=== PATIENT | male | born 1995 | race Two or more races ===

== ENCOUNTER 2020-02-04 09:18 | Emergency (ER) | payer MEDICARE, MEDICAID ==
[~2020-02-04] VITALS: Ht 160 cm; Wt 59.9 kg
[2020-02-04 09:26] VITALS: BP 83/53
[2020-02-04] MEDS ORDERED: DexAMETHasone SOD PHOS 10MG/1ML VIAL INJ IM ONE (10:45)
[2020-02-04] MEDS ORDERED: DOXYCYCLINE 100 MG TAB/CAP PO ONE (10:45)
== END 2020-02-04 11:04 | disposition home or self-care (01) ==
LOC: ER 09:18
DX: J18.9 Pneumonia, unspecified organism (principal); I95.9 Hypotension, unspecified; I10 Essential (primary) hypertension; Z88.8 Allergy status to other drugs, medicaments and biological substances
CPT/HCPCS: 71045; 96372; 99283; J1100

== ENCOUNTER 2024-08-18 19:01 | Emergency (ER) | payer MEDICARE, MEDICAID ==
[~2024-08-18] VITALS: Ht 160 cm; Wt 62.4 kg
[2024-08-18 20:15] VITALS: BP 120/67; PULSE 86; RESP 16; TEMP 98.3; O2SAT 100
[2024-08-18 20:47] LABS: Basophils # (auto) 0.1 10 ^3/uL (0-0.2); Basophils % (auto) 0.9 % (0.0-2.0); Eosinophils # (auto) 0.1 10 ^3/uL (0-0.8); Hematocrit 47.5 % (41.0-53.0); Hemoglobin 16.4 g/dL (13.5-17.5); Lymphocytes # (auto) 2.1 10 ^3/uL (0.4-5.4); Mean Corpuscular Hemoglobin 30.3 pg (28.0-32.0); Mean Corpuscular Hgb Conc. 34.5 g/dL (32.0-36.0); Monocytes # (auto) 0.6 10 ^3/uL (0-1.3); Neutrophils # (auto) 3.9 10 ^3/uL (1.6-8.6); Neutrophils % (auto) 57.1 % (37.0-80.0); Nucleated Red Blood Cells % 0.1 %; Platelet Count (auto) 247 10^3/uL (140-450); Red Cell Distribution Width 13.8 % (11.8-14.3); White Blood Cell 6.9 10^3/uL (4.4-10.8)
[2024-08-18 21:03] LABS: Alanine Aminotransferase 24 U/L (7-40); Albumin 4.4 g/dL (3.2-4.8); Alkaline Phosphatase 78 U/L (46-116); Anion Gap 9 (5-15); BUN/Creatinine Ratio 18.8 (10.0-20.0); Bilirubin, Total 0.5 mg/dL (0.2-1.0); Blood Urea Nitrogen 13 mg/dL (9-23); Calcium 9.4 mg/dL (8.7-10.4); Carbon Dioxide 26 mmol/L (20-31); Chloride 104 mmol/L (98-107); Potassium 3.7 mmol/L (3.5-5.1); Sodium 139 mmol/L (136-145); Total Protein 7.4 g/dL (5.7-8.2); Uric Acid 4.7 mg/dL (3.7-9.2)
[2024-08-18 21:11] LABS: Aspartate Aminotransferase 46 U/L (13-40); Glucose 114 mg/dL (74-106)
[2024-08-18] MEDS ORDERED: DIP005TP EX (21:24)
--- NOTE | 2024-08-18 21:25 | ED.PDOC ---
History of Present Illness(SKN HPI Comments PRESENTS TO ED FOR LEFT LOWER EXTREMITY REDNESS. DENIES PAIN. SYMPTOM STARTED TODAY. DENIES TRAUMA. PATIENT HAS AUTISM, FROM RUST ACCOMPANIED BY CRYSTAL CARE PROVIDER. CSM INTACT. DENIES NUMBNESS, WEAKNESS, FEVERS, CHILLS, WARMTH OR SWELLING AT SITE Chief Complaint: Lower Extremity Time Seen by MD: 19:28 History of Present Illness: Nurses Notes, Medications, Allergies Allergies: Coded Allergies: Ketamine (Verified Allergy, Unknown, 02/04/20) Home Meds Active Scripts Betamethasone Dipropionate (Betamethasone Dipropionat) 0.05 % Cre, 0.05 % EX BID for 7 Days, #15 GRAMS APPLY THIN LAYER TO AFFECTED AREA TWICE DAILY X7 DAYS Prov:RANCHO ODONNELL DAVIS 08/18/24 Information Source: Patient Mode of Arrival: Ambulatory Past Medical History PAST MEDICAL HISTORY: HTN Surgical History: Denies all surgeries Social History Smoker: Non-Smoker Alcohol: Denies ETOH Use Drugs: Denies Drug Use Constitutional: denies: chills, diaphoresis, fatigue, fever, malaise, sweats, weakness, others EENTM: denies: blurred vision, double vision, ear bleeding, ear discharge, ear drainage, ear pain, ear ringing, eye pain, eye redness, hearing loss, mouth pain, mouth swelling, nasal discharge, nose bleeding, nose congestion, nose pain, photophobia, tearing, throat pain, throat swelling, voice changes, others Respiratory: denies: cough, hemoptysis, orthopnea, SOB at rest, shortness of breath, SOB with excertion, stridor, wheezing, others Cardiovascular: denies: chest pain, dizzy spells, diaphoresis, Dyspnea on exertion, edema, irregular heart beat, left arm pain, lightheadedness, palpit ations, PND, syncope, others Gastrointestinal: denies: abdomen distended, abdominal pain, blood streaked b owels, constipated, diarrhea, dysphagia, difficulty swallowing, hematemesis, melena, nausea, poor appetite, poor fluid intake, rectal bleeding, rectal pain, vomiting, others Genitourinary: denies: burning, dysuria, flank pain, frequency, hematuria, incontinence, penile discharge, penile sore, pain, testicle pain, testicle swelling, urgency, others Neurological: denies: dizziness, fainting, headache, left sided numbness, left sided weakness, numbness, paresthesia, pre-existing deficit, right sided numbness, right sided weakness, seizure, speech problems, tingling, tremors, weakness, others Musculoskeletal: denies: back pain, gout, joint pain, joint swelling, muscle pain, muscle stiffness, neck pain, others Integumetry: reports: rash (LEFT LOWER EXTREMITY); denies: bruises, change in color, change in hair/nails, dryness, laceration, lesions, lumps, wounds, others Hematologic/Lymphatic: denies: anemia, blood clots, easy bleeding, easy bruising, swollen glands, others Endocrine: denies: excessive hunger, excessive sweating, excessive thirst, excessive urination, flushing, intolerance to cold, intolerance to heat, unexplained weight gain, unexplained weight loss, others Psychiatric: denies: anxiety, bipolar disorder, depression, hopeless, panic disorder, schizophrenia, sleepless, suicidal, others Physical Exam General Appearance: No Apparent Distress, Normal HEENT: Pharynx Normal Neck: Full Range of Motion, Non-Tender Respiratory: Lungs Clear, No Respiratory Distress, Normal Breath Sounds Cardiovascular: No Edema, No JVD, No Murmur, No Gallop, Normal Peripheral Pulses, Regular Rate/Rhythm Breast Exam: Deferred Gastrointestinal: No Organomegaly, Non Tender, No Pulsatile Mass, Normal Bowel Sounds, Soft Genitalia: Deferred Pelvic: Deferred Rectal: Deferred Extremities: No calf tenderness, Normal capillary refill, Normal inspection, Normal range of motion, Non-tender, No pedal edema Musculoskeletal : Apperance: Normal Neurologic: Alert, dining car conductor II-XII nml as Tested, No Motor Deficits, Normal Affect, Normal Mood, No Sensory Deficits Cerebellar Function: Normal Reflexes: Normal Skin: Dry, Normal Color, Rash (MACULAR RASH RIGHT LOWER MEDIAL THIGH. COOL TO TOUCH, NON-BLANCHABLE, NO NOTED EDEMA OR PAIN ), Warm Lymphatic: No Adenopathy Was a procedure done? Was a procedure done?: No Differential Diagnosis (INTG) Differential Diagnosis: Hematoma Differential Diagnosis: Contact Dermatitis, Drug Reaction Differential Diagnosis: Cellulitis, Contusion X-Ray, Labs, Meds, VS Vital Signs Date Time Temp Pulse Resp B/P (MAP) Pulse Ox O2 Delivery O2 Flow Rate FiO2 3/8/25 20:15 98.3 86 16 120/67 (84) 100 98.3 08/18/24 20:15 86 16 100 Room Air 08/18/24 19:29 98.3 86 16 120/67 (84) 100 Lab Test 08/18/24 20:33 Range/Units White Blood Count 6.9 4.4-10.8 10^3/uL Red Blood Count 5.40 4.5-5.90 10^6/uL Hemoglobin 16.4 13.5-17.5 g/dL Hematocrit 47.5 41.0-53.0 % Mean Corpuscular Volume 88.0 80.0-100.0 fL Mean Corpuscular Hemoglobin 30.3 28.0-32.0 pg Mean Corpuscular Hemoglobin Concent 34.5 32.0-36.0 g/dL Red Cell Distribution Width 13.8 11.8-14.3 % Platelet Count 247 140-450 10^3/uL Mean Platelet Volume 7.7 6.9-10.8 fL Neutrophils (%) (Auto) 57.1 37.0-80.0 % Lymphocytes (%) (Auto) 31.0 10.0-50.0 % Monocytes (%) (Auto) 9.0 0.0-12.0 % Eosinophils (%) (Auto) 2.0 0.0-7.0 % Basophils (%) (Auto) 0.9 0.0-2.0 % Neutrophils # (Auto) 3.9 1.6-8.6 10 ^3/uL Lymphocytes # (Auto) 2.1 0.4-5.4 10 ^3/uL Monocytes # (Auto) 0.6 0-1.3 10 ^3/uL Eosinophils # (Auto) 0.1 0-0.8 10 ^3/uL Basophils # (Auto) 0.1 0-0.2 10 ^3/uL Nucleated Red Blood Cells 0.1 % Sodium Level 139 136-145 mmol/L Potassium Level 3.7 3.5-5.1 mmol/L Chloride Level 104 98-107 mmol/L Carbon Dioxide Level 26 20-31 mmol/L Anion Gap 9 5-15 Blood Urea Nitrogen 13 9-23 mg/dL Creatinine 0.69 L 0.700-1.30 mg/dL Glomerular Filtration Rate Calc 128 >90 mL/min BUN/Creatinine Ratio 18.8 10.0-20.0 Serum Glucose 114 H 74-106 mg/dL Uric Acid 4.7 3.7-9.2 mg/dL Calcium Level 9.4 8.7-10.4 mg/dL Total Bilirubin 0.5 0.2-1.0 mg/dL Aspartate Amino Transferase (AST) 46 H 13-40 U/L Alanine Aminotransferase (ALT) 24 7-40 U/L Alkaline Phosphatase 78 46-116 U/L Total Protein 7.4 5.7-8.2 g/dL Albumin 4.4 3.2-4.8 g/dL X-Ray, Labs, Meds, VS Comment CBC CMP WITHIN NORMAL LIMITS, STEROID CREAM TWICE DAILY X7 DAYS. FOLLOW UP WITH HIS PCP IN 1-2 DAYS. ER RETURN PRECAUTIONS GIVEN CARE PROVIDER INDICATES UNDERSTANDING AGREES WITH DISCHARGE CARE PLAN. Time of 1ST Reevaluation: 21:16 Reevaluation 1ST: Improved Patient Education/Counseling: Diagnosis, Treatment, Prognosis, Need For Follow Up Family Education/Counseling: Diagnosis, Treatment, Prognosis, Need For Follow Up Departure 1 Departure Time of Disposition: 21:16 Impression: Primary Impression: Rash and other nonspecific skin eruption Disposition: 01 HOME / SELF CARE / HOMELESS Condition: Stable e-Prescriptions Betamethasone Dipropionate (Betamethasone Dipropionat) 0.05 % Cre 0.05 % EX BID for 7 Days, #15 GRAMS APPLY THIN LAYER TO AFFECTED AREA TWICE DAILY X7 DAYS Prov: RANCHO ODONNELL 08/18/24 Discharged With: Director Speech Language Critical Care Note Critical Care Time?: No Stability Stability form required: No RANCHO ODONNELL Aug 18, 2024 21:25
== END 2024-08-18 21:32 | disposition home or self-care (01) ==
LOC: ER 19:01
DX: R21 Rash and other nonspecific skin eruption (principal); I10 Essential (primary) hypertension; Z79.899 Other long term (current) drug therapy; Z88.8 Allergy status to other drugs, medicaments and biological substances
CPT/HCPCS: 36415; 80053; 84550; 85025